=== PATIENT | female | born 1970 | race American Indian/Alaskan Native ===

== ENCOUNTER 2019-08-15 08:10 | Outpatient (CLI) | payer OTHER ==
--- NOTE | 2019-08-15 09:35 | Fluoroscopy Report ---
BARIUM SWALLOW Indication: R13.12) Dysphagia, oropharyngeal phase./Gastro-esophageal reflux. Technique: Single contrast barium technique utilized to evaluate the esophagus. FINDINGS: To begin the exam, swallowing was evaluated in the lateral position under direct fluorosco py. Swallowing was normal. No mucosal irregularity, mass, mass effect, or critical stenosis. There were no abnormal tertiary c ontractions as seen with dysmotility. No gastroesophageal reflux. The patient was able to ingest a barium tablet which passed through the esophagus without difficulty. IMPRESSION: No abnormality identified Fluoroscopic time: 1 minutes Number of fluoroscopic images: 17 Signer Name: Noe Loving Jr, MD Signed: 08/15/2019 9:31 AM Workstation Name: [id number]
== END 2019-08-15 08:11 | disposition home or self-care (01) ==
LOC: FLUORO 08:10
PROVIDERS: ATTEND Internal Medicine Gastroenterology
DX: K21.9 Gastro-esophageal reflux disease without esophagitis (principal); R13.12 Dysphagia, oropharyngeal phase; K30 Functional dyspepsia
CPT/HCPCS: 74220